=== PATIENT | male | born 1980 | race Caucasian/White ===

== ENCOUNTER 2017-07-13 15:48 | Emergency (ER) | payer OTHER ==
[~2017-07-13] VITALS: Ht 180.3 cm; Wt 111.0 kg
[2017-07-13] MEDS ORDERED: magnesium 2GM in 50ml NS 50 ML IV ONE (16:20)
[2017-07-13] MEDS ORDERED: normal saline 1000ml 1,000 ML IV ONE ×2 (16:20)
[2017-07-13] MEDS ORDERED: diltiazem 5mg/ml 5ml inj. IV ONE (16:20)
[2017-07-13] MEDS ORDERED: ondansetron/PF 4mg/2ml inj IV ONE (16:25)
[2017-07-13] MEDS ORDERED: famotidine 20mg tablet PO ONE (16:25)
[2017-07-13 16:47] LABS: BASOPHILS # (AUTO) 0.2 X10'3 (0-0.2); BASOPHILS % (AUTO) 1.1 % (0-1); EOSINOPHILS # (AUTO) 0.3 X10'3 (0-0.9); EOSINOPHILS % (AUTO) 1.6 % (0-6); HEMOGLOBIN 16.2 g/dl (14.0-17.9); LYMPHOCYTES # (AUTO) 0.5 X10'3 (1.1-4.8); MEAN CORPUSCULAR HEMOGLOBIN 28.3 PG (27.0-31.0); MEAN CORPUSCULAR HGB CONC 33.1 % (33.0-36.5); MEAN CORPUSCULAR VOLUME 85.5 FL (78-98); MEAN PLATELET VOLUME 7.7 FL (7.4-10.4); MONOCYTES # (AUTO) 0.5 X10'3 (0-0.9); MONOCYTES % (AUTO) 2.9 % (2-12); NEUTROPHILS # (AUTO) 15.8 X10'3 (1.8-7.7); NEUTROPHILS % (AUTO) 91.4 % (42-75); PLATELET COUNT 358 X10'3 (140-440); RED BLOOD COUNT 5.73 X10'6 (4.70-6.10); WHITE BLOOD COUNT 17.3 X10'3 (4.5-11.0)
[2017-07-13 17:24] LABS: ALANINE AMINOTRANSFERASE 38 U/L (12-78); ALBUMIN 4.3 G/DL (3.4-5.0); ALBUMIN/GLOBULIN RATIO 1.1 (1.1-1.5); ALKALINE PHOSPHATASE 48 IU/L (46-116); ANION GAP 13 (8-16); ASPARTATE AMINO TRANSFERASE 19 U/L (10-37); BILIRUBIN,TOTAL 0.6 MG/DL (0.1-1.0); BLOOD UREA NITROGEN 17 MG/DL (7-18); BUN/CREATININE RATIO 12.6 (5.4-32.0); CHLORIDE 102 MMOL/L (99-107); CREATININE 1.35 MG/DL (0.60-1.10); GLUCOSE 137 MG/DL (70-104); SODIUM 141 MMOL/L (135-145); TOTAL CARBON DIOXIDE 26.2 MMOL/L (24-32); TOTAL PROTEIN 8.2 G/DL (6.4-8.2); eGFR 59 ML/MIN
[2017-07-13] MEDS ORDERED: aspirin 325mg tablet PO ONE (17:25)
[2017-07-13 17:32] LABS: MAGNESIUM 1.6 MG/DL (1.5-2.4)
[2017-07-13 18:29] VITALS: BP 139/95
== END 2017-07-13 18:36 | disposition home or self-care (01) ==
LOC: ER 15:49
DX: I48.91 Unspecified atrial fibrillation (principal)
CPT/HCPCS: 36415; 71045; 80053; 83735; 83880; 84484; 85025; 93005; 96365; 96366; 96375; 99285; J2405; J3475; J7030